=== PATIENT | female | born 1980 | race Caucasian/White ===

== ENCOUNTER 2018-12-16 13:21 | Emergency (ER) | payer OTHER ==
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
--- NOTE | 2018-12-16 15:03 | ER Document Report ---
ED General - General Chief Complaint: Anxiety Stated Complaint: ANXIETY Time Seen by Provider: 12/16/18 13:54 Primary Care Provider: GRACIELA DAMON FNP [Primary Care Provider] - Follow up as needed Mode of Arrival: Ambulatory - [facility] Notes: Patient is a 38-year-old female who presents emergency department for evaluation. She states she is here because of increased anxiety as well as insomnia. She denies any suicidal or homicidal ideation. She denies any visual or auditory hallucination. She initially states that she is stressed about the fact that she has no family here. She states her son has a tumor. I asked her to elaborate. It turns out her son is had a tumor for the last 13 years, but it is on operable. She states she is having trouble sleeping. She denies taking any sort of medications for anxiety regularly. She does take Fioricet for her headaches. - Related Data Allergies/Adverse Reactions: No Known Allergies Allergy (Verified 12/16/18 13:51) Home Medications: Fioricet, Flexeril as needed Past Medical History - General Information source: Patient - Social History Smoking Status: Former Smoker Family History: Reviewed & Not Pertinent Patient has suicidal ideation: No Patient has homicidal ideation: No Neurological Medical History: Reports: Other - Headaches Psychiatric Medical History: Reports: Hx Anxiety Review of Systems - Review of Systems Constitutional: No symptoms reported EENT: No symptoms reported Cardiovascular: No symptoms reported Respiratory: No symptoms reported Gastrointestinal: No symptoms reported Genitourinary: No symptoms reported Musculoskeletal: No symptoms reported Skin: No symptoms reported Neurological/Psychological: See HPI Physical Exam - Vital signs Vitals: Temp Pulse Resp BP Pulse Ox 98.4 F 99 16 111/51 L 98 12/16/18 13:29 12/16/18 13:29 12/16/18 13:29 12/16/18 13:29 12/16/18 13:29 - Notes Notes: Vital signs reviewed, please refer to chart. Head is normocephalic, atraumatic. Pupils equal round, reactive to light. Neck is supple without meningismus. Heart is regular rate and rhythm. Lungs are clear to auscultation bilaterally. Abdomen is soft, nontender, normoactive bowel sounds throughout. Extremities without cyanosis, clubbing. Posterior calves are nontender. Peripheral pulses are equal. Skin is warm and dry. Patient is awake, alert, neurological exam is nonfocal. Course - Re-evaluation Re-evalutation: 12/16/18 15:02 Patient presents emergency department for evaluation. She describes an increase in her anxiety as of late. I cannot find any real precipitating factors. She already has a primary care physician. I strongly encouraged her to follow-up with her doctor in regards to her anxiety and insomnia. At this point I will get and send her home with a small prescription for Vistaril. She is to return to the ED with worsening or new concerning symptoms of any sort. - Vital Signs Vital signs: Temp Pulse Resp BP Pulse Ox 98.4 F 99 16 111/51 L 98 12/16/18 13:29 12/16/18 13:29 12/16/18 13:29 12/16/18 13:29 12/16/18 13:29 Discharge - Discharge Clinical Impression: Anxiety Insomnia Qualifiers: Insomnia type: unspecified Qualified Code(s): G47.00 - Insomnia, unspecified Condition: Stable Disposition: HOME, SELF-CARE Instructions: Anxiety ([facility]) Additional Instructions: Take Vistaril as needed for severe anxiety, please watch for drowsiness with this medication. You should further discuss preventative medications for your anxiety with your primary care provider. He should also consider seeking out therapy. Return to the emergency department with worsening or new concerning symptoms of any sort. Referrals: TAMANNA,NO [NO LOCAL MD] - Follow up as needed
[2018-12-16 16:38] VITALS: BP 116/88
== END 2018-12-16 15:30 | disposition home or self-care (01) ==
LOC: ER 13:21
DX: F41.9 Anxiety disorder, unspecified (principal); G47.00 Insomnia, unspecified; R51 Headache
CPT/HCPCS: 99283

== ENCOUNTER 2018-12-25 19:18 | Emergency (ER) | payer OTHER ==
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
--- NOTE | 2018-12-25 21:52 | ER Document Report ---
ED General - General Chief Complaint: Anxiety Stated Complaint: ANXIETY Time Seen by Provider: 12/25/18 19:45 Primary Care Provider: [facility] [Provider Group] - 12/26/18 GRACIELA DAMON FNP [Primary Care Provider] - Follow up as needed Mode of Arrival: Ambulatory - [facility] Onset: Just prior to arrival Onset/Duration: Gradual Severity: Moderate Pain Level: 3 Context: 38 year old female is here with complaints of gradual onset headache for 3 days. Bitemporal headache that is similar to headaches that she has had in the past. No fever and no tick bite. Exacerbated by: Denies Relieved by: Denies - Related Data Allergies/Adverse Reactions: No Known Allergies Allergy (Verified 12/16/18 13:51) Past Medical History - General Information source: Patient - Social History Smoking Status: Never Smoker Chew tobacco use (# tins/day): No Frequency of alcohol use: None Drug Abuse: None Family History: Reviewed & Not Pertinent Patient has suicidal ideation: No Patient has homicidal ideation: No Psychiatric Medical History: Reports: Hx Anxiety Review of Systems - Review of Systems Constitutional: No symptoms reported EENT: No symptoms reported Cardiovascular: No symptoms reported Respiratory: No symptoms reported Gastrointestinal: No symptoms reported Genitourinary: No symptoms reported Female Genitourinary: No symptoms reported Musculoskeletal: No symptoms reported Skin: No symptoms reported Hematologic/Lymphatic: No symptoms reported Neurological/Psychological: No symptoms reported Physical Exam - Vital signs Vitals: Temp Pulse Resp BP Pulse Ox 97.8 F 111 H 18 117/80 100 12/25/18 19:33 12/25/18 19:33 12/25/18 19:33 12/25/18 19:33 12/25/18 19:33 Interpretation: Normal - General General appearance: Appears well, Alert - HEENT Head: Normocephalic, Atraumatic Eyes: Normal Pupils: PERRL - Respiratory Respiratory status: No respiratory distress Chest status: Nontender Breath sounds: Normal Chest palpation: Normal - Cardiovascular Rhythm: Regular Heart sounds: Normal auscultation Murmur: No - Abdominal Inspection: Normal Distension: No distension Bowel sounds: Normal Tenderness: Nontender Organomegaly: No organomegaly - Back Back: Normal, Nontender - Extremities General upper extremity: Normal inspection, Nontender, Normal color, Normal ROM, Normal temperature General lower extremity: Normal inspection, Nontender, Normal color, Normal ROM, Normal temperature, Normal weight bearing. No: Anastasiya's sign - Neurological Neuro grossly intact: Yes Cognition: Normal Orientation: AAOx4 [place] Coma Scale Eye Opening: Spontaneous [place] Coma Scale Verbal: Oriented [place] Coma Scale Motor: Obeys Commands [place] Coma Scale Total: 15 Speech: Normal Motor strength normal: LUE, RUE, LLE, RLE Sensory: Normal - Psychological Associated symptoms: Normal affect, Normal mood, Other - She is adamant she has no SI or HI. - Skin Skin Temperature: Warm Skin Moisture: Dry Skin Color: Normal Course - Re-evaluation Re-evalutation: 12/25/18 21:56 MDM 38 year old female with tension headache for the last 3 days, but it's better now. Also complains of right great toe pain and perhaps depression. is and travels and she is raising 3 children with 16 year old as the oldest. No - Vital Signs Vital signs: Temp Pulse Resp BP Pulse Ox 98.1 F 103 H 14 119/89 H 98 12/25/18 22:23 12/25/18 22:23 12/25/18 22:23 12/25/18 22:23 12/25/18 22:23 Discharge - Discharge Clinical Impression: Tension headache Depression Qualifiers: Depression Type: other depression Qualified Code(s): F32.89 - Other specified depressive episodes Condition: Good Disposition: HOME, SELF-CARE Instructions: Anxiety ([facility]), Tension Headache ([facility]) Additional Instructions: See your doctor in follow up as you are planning. Please return here if you feel helpless or that you may hurt yourself or anyone else. Call [facility] tomorrow to make an appointment. Referrals: GRACIELA DAMON FNP [Primary Care Provider] - Follow up as needed [facility] [Provider Group] - 12/26/18
[2018-12-25 22:33] VITALS: BP 119/89
== END 2018-12-25 22:33 | disposition home or self-care (01) ==
LOC: ER 19:18
DX: G44.209 Tension-type headache, unspecified, not intractable (principal); F32.89 Other specified depressive episodes; F41.9 Anxiety disorder, unspecified
CPT/HCPCS: 99283